=== PATIENT | male | born 1950 | race Caucasian/White ===

== ENCOUNTER → 2018-12-09 08:58 | Outpatient (ROUT) | payer MEDICARE, SELFPAY ==
[2018-12-09 09:11] LABS: INR 1.1 (0.9-1.3); Prothrombin Time 12.5 SECONDS (10.1-12.7)
== END ==
PROVIDERS: Visit Provider Internal Medicine
DX: B18.2 Chronic viral hepatitis C (principal); Z13.0 Encounter for screening for diseases of the blood and blood-forming organs and certain disorders involving the immune mechanism
CPT/HCPCS: 85610

== ENCOUNTER → 2019-01-01 07:28 | Outpatient (CLI) | payer MEDICARE, OTHER, SELFPAY ==
--- NOTE | 2019-01-01 | DI.US.S_ITS ---
PROCEDURE: US ABDOMEN COMPLETE INDICATIONS: RUQ TECHNIQUE: Real-time scanning was performed of the abdominal and retroperitoneal organs, with image documentation. COMPARISON: None. FINDINGS: Liver: The liver demonstrates overall normal size and echogenicity. An apparent 8mm hemangioma can be seen within the right lobe of the liver. There is a 7 mm hypoechoic focus seen adjacent to the gallbladder. Gallbladder: No findings of gallstones or sludge are seen. The gallbladder wall is not thickened, measuring 3 mm or less. No specific pericholecystic fluid is seen. The sonographic Tijerina sign is negative. Biliary ducts: Intrahepatic bile ducts are non-dilated. Extrahepatic bile duct caliber measures 4 mm. Normal is 6-7 mm or less in diameter, or 10 mm or less post-cholecystectomy. Pancreas: Visualized portions of the pancreas are sonographically normal. Spleen: Spleen is normal in size and homogeneous in echotexture. Kidneys: Kidneys are normal in size and echotexture. Right kidney measures 10.5 cm long; left kidney measures 10.2 cm long. No hydronephrosis or nephrolithiasis. No solid masses. Aorta: Visualized aorta is normal in caliber at less than 3 cm. Iliacs: Proximal common iliac arteries are normal in caliber at less than 2.5 cm. IVC: Intrahepatic inferior vena cava is patent. Miscellaneous: No free abdominal fluid. IMPRESSION: The gallbladder demonstrates a normal sonographic appearance. No biliary dilatation is seen. Apparent 8mm right liver lobe hemangioma. There is a 7 mm hypoechoic focus seen adjacent to the gallbladder, which may represent a complex cyst. Dictated by: Danny Daniel M.D. on 01/01/2019 at 20:01 Approved by: Danny Daniel M.D. on 01/01/2019 at 20:02
== END ==
PROVIDERS: Family Provider Internal Medicine; PCP Internal Medicine; Visit Provider Internal Medicine Gastroenterology
DX: R10.11 Right upper quadrant pain (principal)
CPT/HCPCS: 76700

== ENCOUNTER → 2019-12-07 09:21 | Outpatient (CLI) | payer MEDICARE, OTHER, SELFPAY ==
--- NOTE | 2019-12-07 | DI.US.S_ITS ---
PROCEDURE: US ABD AORTA ANEURYSM SCREEN INDICATIONS: FORMER SMOKER TECHNIQUE: Real time scanning was performed of the aorta and iliac arteries, with image documentation. COMPARISON: [facility], [place], US ABDOMEN COMPLETE, 01/01/2019, 8:16. None. FINDINGS: Aorta: Proximal aortic diameter measures 2.4 cm. Mid-aorta measures 1.9 cm. Distal aortic diameter is 1.7 cm. Iliac arteries: Right common iliac artery measures 1.3 cm. Left common iliac artery measures 1.3 cm. IMPRESSION: Negative for aneurysm. Dictated by: Danny Daniel M.D. on 12/07/2019 at 10:06 Approved by: Danny Daniel M.D. on 12/07/2019 at 10:07
== END ==
PROVIDERS: Family Provider Internal Medicine; PCP Internal Medicine; Referring Provider Internal Medicine; Visit Provider Internal Medicine
DX: Z13.6 Encounter for screening for cardiovascular disorders (principal); Z87.891 Personal history of nicotine dependence
CPT/HCPCS: 76706

== ENCOUNTER → 2025-03-03 13:42 | Outpatient (CLI) | payer MEDICARE, OTHER, SELFPAY ==
--- NOTE | 2025-03-03 13:44 | DI.RAD.S_ITS ---
PROCEDURE: XR LUMBAR SPINE MIN 4V INDICATIONS: Anesthesia of skin TECHNIQUE: 5 views of the lumbar spine were acquired, including bilateral oblique views. COMPARISON: None. FINDINGS AND IMPRESSION: Trace L5 on S1 anterolisthesis. [id number] lumbar spondylosis with multilevel disc space height loss, facet arthropathy, and osteophytes. This is worse from L3-L4 and L5-S1. No displaced fracture or dislocation. No definite pars defects on oblique views although these are obscured by bowel gas and stool. If there is high concern for further derangement, consider MRI evaluation. Large fecal loading. Dictated by: Mitul Rogers M.D. on 03/05/2025 at 13:08 Approved by: Mitul Rogers M.D. on 03/05/2025 at 13:09
== END ==
PROVIDERS: Family Provider Internal Medicine; PCP Family Medicine; Referring Provider Family Medicine; Visit Provider Family Medicine
DX: R20.0 Anesthesia of skin (principal); M47.816 Spondylosis without myelopathy or radiculopathy, lumbar region; M47.817 Spondylosis without myelopathy or radiculopathy, lumbosacral region
CPT/HCPCS: 72110

== ENCOUNTER 2025-03-25 08:59 | Day surgery (SDC) | payer MEDICARE, OTHER, SELFPAY ==
[2025-03-23 12:15] VITALS: BMI 23.6
[2025-03-25 09:39] VITALS: BP 151/87; PULSE 91; RESP 16; TEMP 36.6; O2SAT 99
[2025-03-25] MEDS: LACTATED RINGERS 1,000 ML 42 ML IV (09:39)
--- NOTE | 2025-03-25 10:14 | P.HP_ITS ---
History of Present Illness History of Present Illness Date Patient Seen: 03/25/25 Time Patient Seen: 10:14 Chief complaint: Screening Colonoscopy Narrative: Remigio is a 74-year-old man here for a colonoscopy. His lost colonoscopy was approximately 10 years ago and he had a small polyp that was told he could go 10 years. He requests sedation. He has had colonoscopies in the past with no sedation. No family history of colon cancer. [facility] Medical History (Updated 03/25/25 @ 10:15 by Bunny Velez MD) Lymphocytic colitis Hepatitis C Lymphoma (2005) Surgical History (Updated 03/23/25 @ 12:14 by Yolanda Burnett RN) Hx of colonoscopy (2014) Hx of tonsillectomy Social History Smoking Status: Never smoker Meds Home Medications and Allergies Allergies Allergy/AdvReac Type Severity Reaction Status Date / Time No Known Drug Allergies Allergy Verified 03/23/25 12:15 Exam Vital Signs (past 8 hours): - 03/25/25 09:39 Temperature 97.9 F Pulse Rate 91 H Respiratory Rate 16 Blood Pressure 151/87 H Pulse Oximetry 99 Oxygen Delivery Method Room Air Oxygen Delivery Method Room Air Const General: healthy appearing Assessment & Plan Assessment and plan (1) Colon cancer screening: Status: Acute Plan Colonoscopy Time-Based Coding :: [TOTAL MINUTES] spent with patient and on the chart (including review of chart, obtaining history, exam, reviewing outside data, placing orders, documenting exam and treatment plan, and counseling patient) on [DATE]. [employer] Off Shift Document charge(s): No
--- NOTE | 2025-03-25 10:24 | SUR.OPER ---
patient requested no anesthesia for procedure. Monitored by Francisco Delacruz RN.
--- NOTE | 2025-03-25 10:49 | PM.OP.COLON ---
Operative Date/Time/Diagnoses Date of procedure: 03/25/25 Time of procedure: 10:49 Pre-op diagnosis: Colon cancer screening Post-op diagnosis: same Procedure & Clinicians Study performed: Colonoscopy Same procedure(s) as scheduled: Yes Surgeon: Bunny Velez Anesthesia Type: None Procedure Notes Procedure in detail: Surgeon: Bunny Velez MD Anesthesia: None Procedure: The patient was brought to the endoscopy suite, placed in left lateral decubitus position. The patient was connected to monitoring devices. A time-out was performed. Sedation was administered. Once the patient was adequately sedated, a digital rectal exam was performed and was normal. The scope was then inserted and advanced to the cecum where the appendiceal orifice was identified and photographed. The scope was then slowly withdrawn over greater than 6 minutes. The mucosa was thoroughly inspected. No abnormalities were found. The scope was retroflexed in the rectum. The scope was straightened and removed. The patient was awakened and brought to recovery. Scope withdrawal time: 10 minutes Sedation time: 21 minutes Findings: Normal colon Estimated Blood Loss: 0 Complications: none Post-procedure Disposition: PACU
== END 2025-03-25 10:56 | disposition home or self-care (01) ==
PROVIDERS: Family Provider Internal Medicine; PCP Family Medicine; Referring Provider Surgery; Visit Provider Surgery
PROC: 0DJD8ZZ Inspection of Lower Intestinal Tract, Via Natural or Artificial Opening Endoscopic (ICD-10-PCS; CPT 45378; principal; 2025-03-25 10:15)
DX: Z12.11 Encounter for screening for malignant neoplasm of colon (principal)
CPT/HCPCS: G0121; J7120